=== PATIENT | male | born 1945 | race Caucasian/White ===

== ENCOUNTER 2021-06-11 10:09 | Inpatient (IN) ==
[2021-06-11] MEDS ORDERED: Isovue-370 500 ML BOTTLE IVP ONE (11:02)
[2021-06-11 11:27] LABS: VBG HCO3 26 mEq/L (21-27); VBG PCO2 55 mmHg (41-51); VBG PH 7.28 pH Units (7.32-7.42); VBG PO2 33 mmHg (25-50)
[2021-06-11 11:39] LABS: Basophils % 0.4 %; Eosinophils % 0.6 %; Hematocrit 33.6 % (37.5-50.1); Hemoglobin 10.6 g/dL (12.9-16.9); Immature Granulocytes % 0.4 % (0-4); Lymphocytes # 0.6 K/mcL (0.6-4.6); Lymphocytes % 13.3 %; Mean Corpuscular HGB Conc 31.5 g/dL (31.6-35.5); Mean Corpuscular Hemoglobin 27.4 pg (28.0-33.3); Mean Corpuscular Volume 86.8 fL (83.0-100.0); Mean Platelet Volume 9.8 fL (9.4-12.4); Monocytes # 0.3 K/mcL (0.0-1.3); Neutrophils # 3.7 K/mcL (1.6-8.9); Platelet Count 160 K/mcL (140-400); Red Blood Count 3.87 M/mcL (4.19-5.50); Red Cell Distribution Width 15.7 % (11.5-14.5); Segmented Neutrophils % 79.3 %; White Blood Count 4.7 K/mcL (4.3-11.1)
[2021-06-11 11:52] LABS: INR 1.1; Prothrombin Time 13.2 Seconds (9.4-12.1)
[2021-06-11 11:55] LABS: Activated Partial Thrombo Time 36.6 Seconds (26.0-36.0); Alanine Aminotransferase 17 Units/L (7-52); Albumin 3.3 g/dL (3.5-5.7); Albumin/Globulin Ratio 1.1 (1.1-2.2); Alkaline Phosphatase 75 Units/L (34-104); Aspartate Amino Transferase 42 Units/L (13-39); BUN/Creatinine Ratio 19 (6-26); Bilirubin,Direct 0.1 mg/dL (0.0-0.2); Bilirubin,Indirect 0.3 mg/dL (0.0-1.0); Bilirubin,Total 0.4 mg/dL (0.3-1.0); Blood Urea Nitrogen 23 mg/dL (8-23); Calcium 7.7 mg/dL (8.6-10.3); Carbon Dioxide 24 mEq/L (23-29); Chloride 95 mEq/L (98-107); Glucose 105 mg/dL (70-105); Osmolality,Calculated 270 (280-300); Sodium 128 mEq/L (136-145); Total Protein 6.3 g/dL (6.4-8.9); Troponin I < 0.03 ng/mL (< 0.04); eGFR For African Americans > 60 (> 60); eGFR For Non-African Americans 60 (> 60)
[2021-06-11 12:20] LABS: Adenovirus Not Detected (Not Detect); Bordetella Pertussis Not Detected (Not Detect); Chlamydophila pneumoniae Not Detected (Not Detect); Coronavirus 229E Not Detected (Not Detect); Coronavirus HKU1 Not Detected (Not Detect); Coronavirus NL63 Not Detected (Not Detect); Coronavirus OC43 Not Detected (Not Detect); Human Metapneumovirus Not Detected (Not Detect); Human Rhinovirus/Enterovirus Not Detected (Not Detect); Influenza A Subtype 2009 H1 Not Detected (Not Detect); Influenza B Not Detected (Not Detect); Mycoplasma pneumoniae Not Detected (Not Detect); Parainfluenza Virus 1 Not Detected (Not Detect); Parainfluenza Virus 2 Not Detected (Not Detect); Parainfluenza Virus 3 Not Detected (Not Detect); Parainfluenza Virus 4 Not Detected (Not Detect); Respiratory Syncytial Virus Not Detected (Not Detect)
[2021-06-11 12:25] LABS: SARS-CoV-2 DETECTED (Not Detect)
[2021-06-11] MEDS ORDERED: Azithromycin 500 MG in 0.9 % Sodium Chloride 250 ML IVPB ONE (12:38)
[2021-06-11] MEDS ORDERED: cefTRIAXone 1,000 MG in Water for inj. (sterile) 10 ML IVP ONE (12:38)
[2021-06-11] MEDS ORDERED: Naloxone 0.4 MG/ML INJ IVP PRN (14:00)
[2021-06-11] MEDS ORDERED: Ondansetron 4 MG/2 ML VIAL IVP PRN (14:00)
[2021-06-11] MEDS ORDERED: Remdesivir 200 MG in 0.9 % Sodium Chloride 100 ML IVPB ONE (15:39)
[2021-06-11] MEDS ORDERED: traZODone 50 MG TABLET PO PRN (16:22)
[2021-06-11] MEDS: *HR* Heparin 5,000 UNIT/ML VIAL SQ SCH (16:55)
[2021-06-11] MEDS: Patient Taking Own Medication 1 EACH IT SCH (16:55)
[2021-06-11 17:25] LABS: C-Reactive Protein 105 mg/L (Less than 10); Ferritin 432 ng/mL (20-250); Lactate Dehydrogenase 301 Units/L (140-271)
[2021-06-11] MEDS: Baclofen 10 MG TABLET PO SCH (20:47)
[2021-06-12 06:03] LABS: Hemoglobin 11.5 g/dL (12.9-16.9); Immature Granulocytes % 0.5 % (0-4); Lymphocytes # 0.6 K/mcL (0.6-4.6); Lymphocytes % 13.9 %; Mean Corpuscular HGB Conc 31.9 g/dL (31.6-35.5); Mean Corpuscular Hemoglobin 27.3 pg (28.0-33.3); Mean Corpuscular Volume 85.3 fL (83.0-100.0); Mean Platelet Volume 9.8 fL (9.4-12.4); Monocytes # 0.2 K/mcL (0.0-1.3); Monocytes % 5.3 %; Neutrophils # 3.2 K/mcL (1.6-8.9); Platelet Count 158 K/mcL (140-400); Red Blood Count 4.22 M/mcL (4.19-5.50); Red Cell Distribution Width 15.4 % (11.5-14.5); Segmented Neutrophils % 80.3 %
[2021-06-12] MEDS: *HR* Heparin 5,000 UNIT/ML VIAL SQ SCH (06:08)
[2021-06-12 07:17] LABS: Alanine Aminotransferase 15 Units/L (7-52); Albumin/Globulin Ratio 1.1 (1.1-2.2); Alkaline Phosphatase 72 Units/L (34-104); Aspartate Amino Transferase 39 Units/L (13-39); BUN/Creatinine Ratio 26 (6-26); Bilirubin,Direct 0.1 mg/dL (0.0-0.2); Bilirubin,Indirect 0.2 mg/dL (0.0-1.0); Bilirubin,Total 0.3 mg/dL (0.3-1.0); Blood Urea Nitrogen 24 mg/dL (8-23); Carbon Dioxide 23 mEq/L (23-29); Chloride 100 mEq/L (98-107); Globulin 2.8 g/dL (2.4-3.5); Glucose 166 mg/dL (70-105); Magnesium 1.8 mg/dL (1.6-2.6); Osmolality,Calculated 280 (280-300); Phosphorous 4.4 mg/dL (2.7-4.5); Potassium 4.6 mEq/L (3.5-5.1); Sodium 131 mEq/L (136-145); Total Protein 5.8 g/dL (6.4-8.9); eGFR For African Americans > 60 (> 60); eGFR For Non-African Americans > 60 (> 60)
[2021-06-12] MEDS: Tiotropium 10 INH DOSE IH SCH (07:49)
[2021-06-12] MEDS ORDERED: Dexamethasone Sodium Phos/PF 10 MG/ML VIAL IVP SCH (09:00)
[2021-06-12] MEDS: Baclofen 10 MG TABLET PO SCH ×3 (09:01→20:38)
[2021-06-12] MEDS: Azithromycin 500 MG in 0.9 % Sodium Chloride 250 ML IVPB SCH (12:21)
[2021-06-12] MEDS: cefTRIAXone 1,000 MG in Water for inj. (sterile) 10 ML IVP SCH (12:21)
[2021-06-12] MEDS ORDERED: D5% in Water 1,000 ML IVC PRN (12:47)
[2021-06-12] MEDS ORDERED: Dextrose Gel 15 GM/37.5 ML TUBE PO PRN ×2 (12:47)
[2021-06-12] MEDS ORDERED: *HR* Dextrose 50 % in Water (Vial) 50 ML VIAL IVP PRN (12:47)
[2021-06-12] MEDS: Gabapentin 300 MG CAPSULE PO SCH ×2 (15:42→20:37)
[2021-06-12] MEDS: Furosemide 40 MG TABLET PO SCH (15:51)
[2021-06-12] MEDS: Remdesivir 100 MG in 0.9 % Sodium Chloride 100 ML IVPB SCH (16:36)
[2021-06-12] MEDS: Patient Taking Own Medication 1 EACH IT SCH (16:57)
[2021-06-12] MEDS: Insulin LISPRO 300 UNITS/3 ML VIAL SUBQ SCH (19:32)
[2021-06-13 03:47] LABS: Hematocrit 35.3 % (37.5-50.1); Hemoglobin 11.3 g/dL (12.9-16.9); Mean Corpuscular Hemoglobin 27.2 pg (28.0-33.3); Mean Corpuscular Volume 84.9 fL (83.0-100.0); Mean Platelet Volume 9.7 fL (9.4-12.4); Platelet Count 184 K/mcL (140-400); Red Blood Count 4.16 M/mcL (4.19-5.50); Red Cell Distribution Width 15.6 % (11.5-14.5); White Blood Count 6.6 K/mcL (4.3-11.1)
[2021-06-13 04:05] LABS: Albumin 2.8 g/dL (3.5-5.7); Bilirubin,Direct 0.2 mg/dL (0.0-0.2); Bilirubin,Indirect 0.2 mg/dL (0.0-1.0); Bilirubin,Total 0.4 mg/dL (0.3-1.0); Globulin 2.8 g/dL (2.4-3.5); Total Protein 5.6 g/dL (6.4-8.9)
[2021-06-13 04:14] LABS: BUN/Creatinine Ratio 29 (6-26); Blood Urea Nitrogen 31 mg/dL (8-23); Calcium 8.2 mg/dL (8.6-10.3); Carbon Dioxide 25 mEq/L (23-29); Chloride 101 mEq/L (98-107); Glucose 196 mg/dL (70-105); Magnesium 1.8 mg/dL (1.6-2.6); Osmolality,Calculated 294 (280-300); Phosphorous 3.5 mg/dL (2.7-4.5); Potassium 4.3 mEq/L (3.5-5.1); Sodium 136 mEq/L (136-145); eGFR For African Americans > 60 (> 60); eGFR For Non-African Americans > 60 (> 60)
[2021-06-13 04:25] LABS: Ferritin 672 ng/mL (20-250)
[2021-06-13] MEDS: *HR* Enoxaparin 40 MG/0.4 ML SYRINGE SQ SCH (05:08)
[2021-06-13] MEDS: Tiotropium 10 INH DOSE IH SCH (07:40)
[2021-06-13] MEDS: Insulin LISPRO 300 UNITS/3 ML VIAL SUBQ SCH ×3 (09:43→17:46)
[2021-06-13] MEDS: Dexamethasone Sodium Phos/PF 10 MG/ML VIAL IVP SCH (09:57)
[2021-06-13] MEDS: Gabapentin 300 MG CAPSULE PO SCH ×2 (09:58→21:41)
[2021-06-13] MEDS: Baclofen 10 MG TABLET PO SCH ×3 (09:58→21:41)
[2021-06-13] MEDS: Furosemide 40 MG TABLET PO SCH (09:58)
[2021-06-13] MEDS: *HR* SitaGLIPtin 25 MG TABLET PO SCH (09:58)
[2021-06-13] MEDS: cefTRIAXone 1,000 MG in Water for inj. (sterile) 10 ML IVP SCH (13:37)
[2021-06-13] MEDS: Azithromycin 500 MG in 0.9 % Sodium Chloride 250 ML IVPB SCH (13:52)
[2021-06-13] MEDS ORDERED: Ipratropium 1 PUFF INHALER IH PRN (15:48)
[2021-06-13] MEDS: Remdesivir 100 MG in 0.9 % Sodium Chloride 100 ML IVPB SCH (16:04)
[2021-06-13] MEDS: Patient Taking Own Medication 1 EACH IT SCH (16:08)
[2021-06-13] MEDS ORDERED: Furosemide 20 MG/2 ML VIAL IVP ONE (21:07)
[2021-06-14] MEDS: *HR* Enoxaparin 40 MG/0.4 ML SYRINGE SQ SCH (05:35)
[2021-06-14 06:02] LABS: Hematocrit 37.2 % (37.5-50.1); Hemoglobin 11.9 g/dL (12.9-16.9); Mean Corpuscular Hemoglobin 27.4 pg (28.0-33.3); Mean Corpuscular Volume 85.5 fL (83.0-100.0); Mean Platelet Volume 10.1 fL (9.4-12.4); Platelet Count 218 K/mcL (140-400); Red Blood Count 4.35 M/mcL (4.19-5.50); Red Cell Distribution Width 15.7 % (11.5-14.5); White Blood Count 6.8 K/mcL (4.3-11.1)
[2021-06-14] MEDS: Tiotropium 10 INH DOSE IH SCH (07:38)
[2021-06-14 07:53] LABS: BUN/Creatinine Ratio 39 (6-26); Blood Urea Nitrogen 51 mg/dL (8-23); Calcium 8.5 mg/dL (8.6-10.3); Carbon Dioxide 23 mEq/L (23-29); Chloride 106 mEq/L (98-107); Glucose 213 mg/dL (70-105); Osmolality,Calculated 308 (280-300); Potassium 4.4 mEq/L (3.5-5.1); Sodium 139 mEq/L (136-145); eGFR For African Americans > 60 (> 60); eGFR For Non-African Americans 53 (> 60)
[2021-06-14 07:56] LABS: Albumin 3.1 g/dL (3.5-5.7); Bilirubin,Direct 0.1 mg/dL (0.0-0.2); Bilirubin,Indirect 0.3 mg/dL (0.0-1.0); Bilirubin,Total 0.4 mg/dL (0.3-1.0); Globulin 3.2 g/dL (2.4-3.5); Total Protein 6.3 g/dL (6.4-8.9)
[2021-06-14] MEDS: Insulin LISPRO 300 UNITS/3 ML VIAL SUBQ SCH ×3 (09:16→17:39)
[2021-06-14] MEDS: Dexamethasone Sodium Phos/PF 10 MG/ML VIAL IVP SCH (09:17)
[2021-06-14] MEDS: Furosemide 40 MG TABLET PO SCH (09:18)
[2021-06-14] MEDS: *HR* SitaGLIPtin 25 MG TABLET PO SCH (09:18)
[2021-06-14] MEDS: Baclofen 10 MG TABLET PO SCH ×3 (09:18→21:00)
[2021-06-14] MEDS: Azithromycin 500 MG in 0.9 % Sodium Chloride 250 ML IVPB SCH (12:46)
[2021-06-14] MEDS: cefTRIAXone 1,000 MG in Water for inj. (sterile) 10 ML IVP SCH (12:48)
[2021-06-14] MEDS: Remdesivir 100 MG in 0.9 % Sodium Chloride 100 ML IVPB SCH (17:40)
[2021-06-14] MEDS: Patient Taking Own Medication 1 EACH IT SCH (17:41)
[2021-06-14] MEDS: Gabapentin 300 MG CAPSULE PO SCH (21:00)
[2021-06-15] MEDS: *HR* Enoxaparin 40 MG/0.4 ML SYRINGE SQ SCH (05:49)
[2021-06-15 07:04] LABS: Hematocrit 36.4 % (37.5-50.1); Hemoglobin 11.6 g/dL (12.9-16.9); Mean Corpuscular HGB Conc 31.9 g/dL (31.6-35.5); Mean Corpuscular Hemoglobin 27.4 pg (28.0-33.3); Mean Corpuscular Volume 86.1 fL (83.0-100.0); Mean Platelet Volume 9.7 fL (9.4-12.4); Platelet Count 193 K/mcL (140-400); Red Blood Count 4.23 M/mcL (4.19-5.50); Red Cell Distribution Width 15.7 % (11.5-14.5); White Blood Count 7.1 K/mcL (4.3-11.1)
[2021-06-15 07:22] LABS: Albumin 3.1 g/dL (3.5-5.7); Bilirubin,Direct 0.1 mg/dL (0.0-0.2); Bilirubin,Indirect 0.3 mg/dL (0.0-1.0); Bilirubin,Total 0.4 mg/dL (0.3-1.0); Globulin 3.2 g/dL (2.4-3.5); Total Protein 6.3 g/dL (6.4-8.9)
[2021-06-15 07:24] LABS: BUN/Creatinine Ratio 43 (6-26); Blood Urea Nitrogen 60 mg/dL (8-23); Calcium 8.4 mg/dL (8.6-10.3); Carbon Dioxide 27 mEq/L (23-29); Chloride 102 mEq/L (98-107); Glucose 205 mg/dL (70-105); Magnesium 2.3 mg/dL (1.6-2.6); Osmolality,Calculated 307 (280-300); Phosphorous 3.7 mg/dL (2.7-4.5); Potassium 4.1 mEq/L (3.5-5.1); Sodium 137 mEq/L (136-145); eGFR For African Americans > 60 (> 60); eGFR For Non-African Americans 50 (> 60)
[2021-06-15 07:41] LABS: Ferritin 522 ng/mL (20-250)
[2021-06-15] MEDS: Tiotropium 10 INH DOSE IH SCH (07:44)
[2021-06-15] MEDS: Baclofen 10 MG TABLET PO SCH ×2 (09:39→18:29)
[2021-06-15] MEDS: *HR* SitaGLIPtin 25 MG TABLET PO SCH (09:39)
[2021-06-15] MEDS: Furosemide 40 MG TABLET PO SCH (09:39)
[2021-06-15] MEDS: Insulin LISPRO 300 UNITS/3 ML VIAL SUBQ SCH ×3 (09:40→18:31)
[2021-06-15] MEDS: Dexamethasone Sodium Phos/PF 10 MG/ML VIAL IVP SCH (09:40)
[2021-06-15 11:42] LABS: C-Reactive Protein 30 mg/L (Less than 10)
[2021-06-15] MEDS: cefTRIAXone 1,000 MG in Water for inj. (sterile) 10 ML IVP SCH (12:37)
[2021-06-15] MEDS ORDERED: Azithromycin 250 MG TABLET PO SCH (13:00)
[2021-06-15] MEDS: Patient Taking Own Medication 1 EACH IT SCH (18:30)
[2021-06-15] MEDS ORDERED: *HR* HYDROmorphone (PF) 1 MG/ML SYRINGE IVP PRN (22:02)
[2021-06-16] MEDS: Insulin LISPRO 300 UNITS/3 ML VIAL SUBQ SCH ×4 (01:14→17:34)
[2021-06-16 01:57] LABS: Sodium, Urine 49.6 mEq/L
[2021-06-16] MEDS: *HR* Enoxaparin 40 MG/0.4 ML SYRINGE SQ SCH (06:32)
[2021-06-16 07:26] LABS: Basophils % 0.1 %; Hematocrit 37.5 % (37.5-50.1); Hemoglobin 12.1 g/dL (12.9-16.9); Immature Granulocytes % 0.9 % (0-4); Lymphocytes # 0.7 K/mcL (0.6-4.6); Lymphocytes % 7.5 %; Mean Corpuscular HGB Conc 32.3 g/dL (31.6-35.5); Mean Corpuscular Hemoglobin 27.2 pg (28.0-33.3); Mean Corpuscular Volume 84.3 fL (83.0-100.0); Mean Platelet Volume 10.3 fL (9.4-12.4); Monocytes # 0.8 K/mcL (0.0-1.3); Monocytes % 8.3 %; Platelet Count 195 K/mcL (140-400); Red Blood Count 4.45 M/mcL (4.19-5.50); Red Cell Distribution Width 15.4 % (11.5-14.5); Segmented Neutrophils % 83.2 %; White Blood Count 9.6 K/mcL (4.3-11.1)
[2021-06-16 07:45] LABS: Alanine Aminotransferase 13 Units/L (7-52); Albumin 3.2 g/dL (3.5-5.7); Alkaline Phosphatase 63 Units/L (34-104); Aspartate Amino Transferase 17 Units/L (13-39); BUN/Creatinine Ratio 54 (6-26); Bilirubin,Total 0.5 mg/dL (0.3-1.0); Blood Urea Nitrogen 65 mg/dL (8-23); Calcium 8.4 mg/dL (8.6-10.3); Carbon Dioxide 23 mEq/L (23-29); Chloride 106 mEq/L (98-107); Globulin 3.1 g/dL (2.4-3.5); Glucose 219 mg/dL (70-105); Osmolality,Calculated 311 (280-300); Potassium 4.2 mEq/L (3.5-5.1); Sodium 138 mEq/L (136-145); Total Protein 6.3 g/dL (6.4-8.9); eGFR For African Americans > 60 (> 60); eGFR For Non-African Americans 59 (> 60)
[2021-06-16 07:46] LABS: Albumin 3.1 g/dL (3.5-5.7); Bilirubin,Direct 0.1 mg/dL (0.0-0.2); Bilirubin,Indirect 0.4 mg/dL (0.0-1.0); Bilirubin,Total 0.5 mg/dL (0.3-1.0); Globulin 3.2 g/dL (2.4-3.5); Total Protein 6.3 g/dL (6.4-8.9)
[2021-06-16] MEDS: Dexamethasone Sodium Phos/PF 10 MG/ML VIAL IVP SCH (07:53)
[2021-06-16] MEDS: Baclofen 10 MG TABLET PO SCH ×3 (07:54→19:57)
[2021-06-16] MEDS: Tiotropium 10 INH DOSE IH SCH (07:58)
[2021-06-16] MEDS: Gabapentin 300 MG CAPSULE PO SCH (19:57)
[2021-06-16] MEDS: Saliva Stimulant 44.3ml BOTTLE PO PRN (20:08)
[2021-06-16] MEDS: Patient Taking Own Medication 1 EACH IT SCH (20:11)
[2021-06-17] MEDS: Insulin LISPRO 300 UNITS/3 ML VIAL SUBQ SCH ×4 (00:49→18:34)
[2021-06-17] MEDS: *HR* Enoxaparin 40 MG/0.4 ML SYRINGE SQ SCH (06:00)
[2021-06-17] MEDS: Saliva Stimulant 44.3ml BOTTLE PO PRN ×3 (06:04→16:11)
[2021-06-17] MEDS: Tiotropium 10 INH DOSE IH SCH (07:47)
[2021-06-17] MEDS: Baclofen 10 MG TABLET PO SCH ×3 (09:02→19:47)
[2021-06-17] MEDS: Dexamethasone Sodium Phos/PF 10 MG/ML VIAL IVP SCH (10:04)
[2021-06-17] MEDS: Haloperidol Lactate 5 MG/ML VIAL IVP PRN (14:31)
[2021-06-17] MEDS: QUEtiapine Fumarate 25 MG TABLET PO SCH ×2 (15:05→19:48)
[2021-06-17] MEDS: Patient Taking Own Medication 1 EACH IT SCH (17:06)
[2021-06-17] MEDS: Gabapentin 300 MG CAPSULE PO SCH (19:48)
[2021-06-18] MEDS: Insulin LISPRO 300 UNITS/3 ML VIAL SUBQ SCH ×4 (00:51→18:30)
[2021-06-18] MEDS: Haloperidol Lactate 5 MG/ML VIAL IVP PRN (05:16)
[2021-06-18] MEDS: *HR* Enoxaparin 40 MG/0.4 ML SYRINGE SQ SCH (06:59)
[2021-06-18] MEDS: Tiotropium 10 INH DOSE IH SCH (07:57)
[2021-06-18] MEDS: Baclofen 10 MG TABLET PO SCH ×3 (10:44→22:10)
[2021-06-18] MEDS: QUEtiapine Fumarate 25 MG TABLET PO SCH ×2 (10:44→22:10)
[2021-06-18] MEDS: Dexamethasone Sodium Phos/PF 10 MG/ML VIAL IVP SCH (11:09)
[2021-06-18 11:11] LABS: BUN/Creatinine Ratio 48 (6-26); Blood Urea Nitrogen 50 mg/dL (8-23); Calcium 8.7 mg/dL (8.6-10.3); Carbon Dioxide 26 mEq/L (23-29); Chloride 114 mEq/L (98-107); Glucose 196 mg/dL (70-105); Osmolality,Calculated 327 (280-300); Potassium 3.9 mEq/L (3.5-5.1); Sodium 149 mEq/L (136-145); eGFR For African Americans > 60 (> 60); eGFR For Non-African Americans > 60 (> 60)
[2021-06-18] MEDS: Saliva Stimulant 44.3ml BOTTLE PO PRN (11:15)
[2021-06-18 13:25] LABS: Hematocrit 41.6 % (37.5-50.1); Hemoglobin 12.8 g/dL (12.9-16.9); Mean Corpuscular HGB Conc 30.8 g/dL (31.6-35.5); Mean Corpuscular Hemoglobin 26.8 pg (28.0-33.3); Mean Platelet Volume 11.2 fL (9.4-12.4); Platelet Count 213 K/mcL (140-400); Red Blood Count 4.78 M/mcL (4.19-5.50); Red Cell Distribution Width 15.9 % (11.5-14.5); White Blood Count 18.9 K/mcL (4.3-11.1)
[2021-06-18] MEDS ORDERED: Haloperidol Lactate 5 MG/ML VIAL IM ONE (17:04)
[2021-06-18] MEDS: Patient Taking Own Medication 1 EACH IT SCH (18:30)
[2021-06-18] MEDS: Gabapentin 300 MG CAPSULE PO SCH (22:10)
[2021-06-19] MEDS: Insulin LISPRO 300 UNITS/3 ML VIAL SUBQ SCH ×4 (00:05→17:58)
[2021-06-19] MEDS: *HR* Enoxaparin 40 MG/0.4 ML SYRINGE SQ SCH (05:43)
[2021-06-19] MEDS: Dexamethasone Sodium Phos/PF 10 MG/ML VIAL IVP SCH (09:22)
[2021-06-19] MEDS: Baclofen 10 MG TABLET PO SCH ×3 (09:22→22:21)
[2021-06-19] MEDS: QUEtiapine Fumarate 25 MG TABLET PO SCH ×2 (09:22→22:21)
[2021-06-19 09:23] LABS: Basophils # 0.1 K/mcL (0.0-0.2); Basophils % 0.2 %; Hematocrit 45.3 % (37.5-50.1); Hemoglobin 13.6 g/dL (12.9-16.9); Immature Granulocytes % 0.9 % (0-4); Lymphocytes # 0.6 K/mcL (0.6-4.6); Lymphocytes % 2.8 %; Mean Corpuscular Hemoglobin 26.7 pg (28.0-33.3); Mean Platelet Volume 11.1 fL (9.4-12.4); Monocytes # 0.8 K/mcL (0.0-1.3); Monocytes % 3.4 %; Neutrophils # 20.9 K/mcL (1.6-8.9); Nucleated Red Blood Cells 0.1 /100 WBC (0); Platelet Count 190 K/mcL (140-400); Red Blood Count 5.09 M/mcL (4.19-5.50); Red Cell Distribution Width 16.2 % (11.5-14.5); Segmented Neutrophils % 92.7 %; White Blood Count 22.6 K/mcL (4.3-11.1)
[2021-06-19 09:42] LABS: BUN/Creatinine Ratio 41 (6-26); Blood Urea Nitrogen 47 mg/dL (8-23); Calcium 9.2 mg/dL (8.6-10.3); Carbon Dioxide 25 mEq/L (23-29); Chloride 118 mEq/L (98-107); Glucose 207 mg/dL (70-105); Magnesium 2.9 mg/dL (1.6-2.6); Osmolality,Calculated 336 (280-300); Phosphorous 3.1 mg/dL (2.7-4.5); Sodium 154 mEq/L (136-145); eGFR For African Americans > 60 (> 60); eGFR For Non-African Americans > 60 (> 60)
[2021-06-19] MEDS: Tiotropium 10 INH DOSE IH SCH (10:51)
[2021-06-19] MEDS ORDERED: D5% in Water 1,000 ML IVC SCH (11:15)
[2021-06-19] MEDS ORDERED: DilTIAZem SR (12hr) 60 MG CAP.ER.12H PO SCH (12:45)
[2021-06-19] MEDS ORDERED: DilTIAZem 50 MG/50 ML IV.SOLN IVC SCH (13:00)
[2021-06-19] MEDS: Patient Taking Own Medication 1 EACH IT SCH (13:01)
[2021-06-19] MEDS: Haloperidol Lactate 5 MG/ML VIAL IVP PRN (22:19)
[2021-06-19] MEDS: Gabapentin 300 MG CAPSULE PO SCH (22:21)
[2021-06-20 00:48] LABS: Basophils % 0.1 %; Hematocrit 42.8 % (37.5-50.1); Hemoglobin 13.2 g/dL (12.9-16.9); Immature Granulocytes % 0.6 % (0-4); Lymphocytes # 0.6 K/mcL (0.6-4.6); Lymphocytes % 3.3 %; Mean Corpuscular HGB Conc 30.8 g/dL (31.6-35.5); Mean Corpuscular Hemoglobin 27.2 pg (28.0-33.3); Mean Corpuscular Volume 88.2 fL (83.0-100.0); Mean Platelet Volume 11.8 fL (9.4-12.4); Monocytes # 0.6 K/mcL (0.0-1.3); Monocytes % 3.2 %; Neutrophils # 17.6 K/mcL (1.6-8.9); Platelet Count 160 K/mcL (140-400); Red Blood Count 4.85 M/mcL (4.19-5.50); Red Cell Distribution Width 16.5 % (11.5-14.5); Segmented Neutrophils % 92.8 %
[2021-06-20 01:05] LABS: Fibrinogen 490 mg/dL (169-393)
[2021-06-20 01:21] LABS: BUN/Creatinine Ratio 45 (6-26); Blood Urea Nitrogen 52 mg/dL (8-23); Calcium 8.9 mg/dL (8.6-10.3); Carbon Dioxide 24 mEq/L (23-29); Chloride 116 mEq/L (98-107); Glucose 360 mg/dL (70-105); Magnesium 2.9 mg/dL (1.6-2.6); Osmolality,Calculated 341 (280-300); Phosphorous 2.5 mg/dL (2.7-4.5); Potassium 4.1 mEq/L (3.5-5.1); Sodium 151 mEq/L (136-145); eGFR For African Americans > 60 (> 60); eGFR For Non-African Americans > 60 (> 60)
[2021-06-20 01:24] LABS: D-Dimer 14246 ng/mLFEU (0-500)
[2021-06-20 01:38] LABS: Ferritin > 1500 ng/mL (20-250)
[2021-06-20] MEDS: DilTIAZem CD (24hr) 120 MG CAP.ER.24H PO SCH ×2 (01:38→21:52)
[2021-06-20] MEDS: Baclofen 10 MG TABLET PO SCH ×4 (01:40→21:53)
[2021-06-20] MEDS: QUEtiapine Fumarate 25 MG TABLET PO SCH ×2 (01:41→09:42)
[2021-06-20] MEDS: Gabapentin 300 MG CAPSULE PO SCH ×2 (01:41→21:53)
[2021-06-20] MEDS: Insulin LISPRO 300 UNITS/3 ML VIAL SUBQ SCH ×4 (06:11→18:24)
[2021-06-20] MEDS: *HR* Enoxaparin 40 MG/0.4 ML SYRINGE SQ SCH (06:12)
[2021-06-20] MEDS ORDERED: D5% in Water 1,000 ML IVC SCH (07:45)
[2021-06-20] MEDS: Dexamethasone Sodium Phos/PF 10 MG/ML VIAL IVP SCH (08:11)
[2021-06-20] MEDS: Tiotropium 10 INH DOSE IH SCH (10:30)
[2021-06-20] MEDS ORDERED: Isovue-370 500 ML BOTTLE IVP ONE (11:51)
[2021-06-20] MEDS: Patient Taking Own Medication 1 EACH IT SCH (15:25)
[2021-06-20 17:08] LABS: ABG Base Excess 3 mEq/L (-2 to 3); ABG HCO3 25 mEq/L (21-27); ABG Oxygen Saturation 93 % (95-98); ABG PCO2 31 mmHg (35-45); ABG PH 7.51 pH Units (7.32-7.45); ABG PO2 59 mmHg (85-104); ABG TCO2 26 mEq/L (20-26)
[2021-06-20] MEDS ORDERED: Insulin DETEMIR 100 UNIT/ML X5UNITS SUBQ SCH (21:00)
[2021-06-20] MEDS: Insulin DETEMIR 100 UNIT/ML X5UNITS SUBQ SCH (21:58)
[2021-06-21] MEDS: Insulin LISPRO 300 UNITS/3 ML VIAL SUBQ SCH ×4 (00:29→17:35)
[2021-06-21] MEDS: *HR* Enoxaparin 40 MG/0.4 ML SYRINGE SQ SCH (06:24)
[2021-06-21] MEDS ORDERED: *HR* Heparin 5,000 UNIT/ML VIAL IVP PRN (07:43)
[2021-06-21] MEDS ORDERED: *HR* Heparin 5,000 UNIT/ML VIAL IVP ONE ×2 (07:43→12:15)
[2021-06-21] MEDS: Tiotropium 10 INH DOSE IH SCH (08:59)
[2021-06-21] MEDS: Insulin DETEMIR 100 UNIT/ML X5UNITS SUBQ SCH ×2 (09:51→20:26)
[2021-06-21] MEDS: Baclofen 10 MG TABLET PO SCH ×3 (09:52→20:18)
[2021-06-21] MEDS: DilTIAZem CD (24hr) 120 MG CAP.ER.24H PO SCH (09:53)
[2021-06-21] MEDS: Levothyroxine Sodium 100 MCG VIAL IVP SCH (11:31)
[2021-06-21] MEDS: Pantoprazole 40 MG VIAL IVP SCH (11:34)
[2021-06-21 11:35] LABS: Hematocrit 47.2 % (37.5-50.1); Hemoglobin 14.6 g/dL (12.9-16.9); Mean Corpuscular HGB Conc 30.9 g/dL (31.6-35.5); Mean Corpuscular Volume 87.2 fL (83.0-100.0); Monocytes # 0.9 K/mcL (0.0-1.3); Platelet Count 160 K/mcL (140-400); Red Blood Count 5.41 M/mcL (4.19-5.50); Red Cell Distribution Width 16.7 % (11.5-14.5); White Blood Count 29.3 K/mcL (4.3-11.1)
[2021-06-21] MEDS: Heparin 25,000UNIT/250ML 1/2NS 25,000 UNIT/250 ML IV.SOLN IVC SCH (11:44)
[2021-06-21 11:47] LABS: Fibrinogen 363 mg/dL (169-393); Heparin anti-factor XA UFH 0.26 IU/mL (0.30-0.70)
[2021-06-21 11:50] LABS: INR 1.5; Prothrombin Time 16.8 Seconds (9.4-12.1)
[2021-06-21 12:00] LABS: D-Dimer 28374 ng/mLFEU (0-500)
[2021-06-21] MEDS ORDERED: Dexamethasone Sodium Phos/PF 10 MG/ML VIAL IVP ONE (12:00)
[2021-06-21 12:10] LABS: BUN/Creatinine Ratio 48 (6-26); Blood Urea Nitrogen 65 mg/dL (8-23); Calcium 9.2 mg/dL (8.6-10.3); Carbon Dioxide 25 mEq/L (23-29); Chloride 119 mEq/L (98-107); Glucose 208 mg/dL (70-105); Lactate Dehydrogenase 410 Units/L (140-271); Osmolality,Calculated 349 (280-300); Potassium 3.9 mEq/L (3.5-5.1); Sodium 157 mEq/L (136-145); eGFR For African Americans > 60 (> 60); eGFR For Non-African Americans 51 (> 60)
[2021-06-21 12:17] LABS: Ferritin > 1500 ng/mL (20-250)
[2021-06-21 12:21] LABS: Lymphocytes # 0.6 K/mcL (0.6-4.6); Neutrophils # 27.8 K/mcL (1.6-8.9)
[2021-06-21 12:22] LABS: Large Platelets Present (Not Present); Platelet Estimate Normal (Normal); Toxic Granulation Present (Not Present)
[2021-06-21] MEDS: Haloperidol Lactate 5 MG/ML VIAL IVP PRN (12:52)
[2021-06-21 12:56] LABS: Estimated Average Glucose 180 mg/dl; Hemoglobin A1C 7.9 %
[2021-06-21] MEDS: Patient Taking Own Medication 1 EACH IT SCH (14:45)
[2021-06-21] MEDS ORDERED: D5% in Water 1,000 ML IVC SCH (17:00)
[2021-06-21] MEDS ORDERED: Doxycycline 100 MG in 0.9 % Sodium Chloride Mini Bag 100 ML IVPB SCH (18:00)
[2021-06-21] MEDS: Gabapentin 300 MG CAPSULE PO SCH (20:18)
[2021-06-21] MEDS: QUEtiapine Fumarate 25 MG TABLET PO SCH (20:18)
[2021-06-21] MEDS: Ampicillin/Sulbactam 1,500 MG in 0.9 % Sodium Chloride Mini Bag 100 ML IVPB SCH (23:02)
[2021-06-22] MEDS: Ampicillin/Sulbactam 1,500 MG in 0.9 % Sodium Chloride Mini Bag 100 ML IVPB SCH ×5 (00:35→23:56)
[2021-06-22] MEDS: Insulin LISPRO 300 UNITS/3 ML VIAL SUBQ SCH ×4 (00:48→17:57)
[2021-06-22] MEDS: Baclofen 10 MG TABLET PO SCH ×3 (07:22→21:09)
[2021-06-22] MEDS: DilTIAZem CD (24hr) 120 MG CAP.ER.24H PO SCH (07:22)
[2021-06-22] MEDS: QUEtiapine Fumarate 25 MG TABLET PO SCH ×2 (07:23→21:09)
[2021-06-22] MEDS: Insulin DETEMIR 100 UNIT/ML X5UNITS SUBQ SCH ×2 (07:34→21:47)
[2021-06-22] MEDS: Pantoprazole 40 MG VIAL IVP SCH (07:35)
[2021-06-22] MEDS: Levothyroxine Sodium 100 MCG VIAL IVP SCH (07:35)
[2021-06-22] MEDS: Dexamethasone Sodium Phos/PF 10 MG/ML VIAL IVP SCH (08:52)
[2021-06-22] MEDS: Tiotropium 10 INH DOSE IH SCH (10:56)
[2021-06-22] MEDS: *HR* Heparin 5,000 UNIT/ML VIAL IVP PRN ×2 (11:35→19:14)
[2021-06-22] MEDS ORDERED: Dexamethasone Sodium Phos/PF 10 MG/ML VIAL IVP ONE (11:58)
[2021-06-22 12:12] LABS: Basophils % 0.1 %; Hemoglobin 13.9 g/dL (12.9-16.9); Immature Granulocytes % 0.8 % (0-4)
[2021-06-22 12:14] LABS: Hematocrit 44.6 % (37.5-50.1); Lymphocytes # 0.5 K/mcL (0.6-4.6); Lymphocytes % 1.9 %; Mean Corpuscular HGB Conc 31.2 g/dL (31.6-35.5); Mean Corpuscular Volume 86.8 fL (83.0-100.0); Mean Platelet Volume 12.1 fL (9.4-12.4); Monocytes # 0.8 K/mcL (0.0-1.3); Monocytes % 2.9 %; Neutrophils # 26.8 K/mcL (1.6-8.9); Platelet Count 131 K/mcL (140-400); Red Blood Count 5.14 M/mcL (4.19-5.50); Red Cell Distribution Width 16.5 % (11.5-14.5); Segmented Neutrophils % 94.3 %; White Blood Count 28.4 K/mcL (4.3-11.1)
[2021-06-22 12:49] LABS: Platelet Estimate Slight Decrease (Normal)
[2021-06-22 12:55] LABS: Calcium 8.8 mg/dL (8.6-10.3); Potassium 4.8 mEq/L (3.5-5.1)
[2021-06-22] MEDS ORDERED: D5% in Water 1,000 ML IVC SCH (13:00)
[2021-06-22] MEDS: Patient Taking Own Medication 1 EACH IT SCH (15:17)
[2021-06-22] MEDS: Heparin 25,000UNIT/250ML 1/2NS 25,000 UNIT/250 ML IV.SOLN IVC SCH ×2 (19:22→21:29)
[2021-06-22] MEDS: Haloperidol Lactate 5 MG/ML VIAL IVP PRN (19:41)
[2021-06-22] MEDS: Gabapentin 300 MG CAPSULE PO SCH (21:09)
[2021-06-23] MEDS: Insulin LISPRO 300 UNITS/3 ML VIAL SUBQ SCH ×4 (00:31→17:41)
[2021-06-23 02:21] LABS: Basophils % 0.1 %; Lymphocytes % 2.3 %; Segmented Neutrophils % 93.8 %
[2021-06-23 02:23] LABS: Hematocrit 41.6 % (37.5-50.1); Hemoglobin 12.7 g/dL (12.9-16.9); Immature Granulocytes % 0.7 % (0-4); Lymphocytes # 0.7 K/mcL (0.6-4.6); Mean Corpuscular HGB Conc 30.5 g/dL (31.6-35.5); Mean Corpuscular Volume 88.5 fL (83.0-100.0); Mean Platelet Volume 12.9 fL (9.4-12.4); Monocytes # 0.9 K/mcL (0.0-1.3); Monocytes % 3.1 %; Neutrophils # 27.4 K/mcL (1.6-8.9); Platelet Count 119 K/mcL (140-400); Red Cell Distribution Width 16.7 % (11.5-14.5); White Blood Count 29.2 K/mcL (4.3-11.1)
[2021-06-23 02:30] LABS: Heparin anti-factor XA UFH 0.57 IU/mL (0.30-0.70)
[2021-06-23 02:39] LABS: Platelet Estimate Slight Decrease (Normal)
[2021-06-23 02:42] LABS: BUN/Creatinine Ratio 50 (6-26); Blood Urea Nitrogen 74 mg/dL (8-23); Calcium 8.4 mg/dL (8.6-10.3); Carbon Dioxide 24 mEq/L (23-29); Chloride 124 mEq/L (98-107); Glucose 187 mg/dL (70-105); Lactate Dehydrogenase 367 Units/L (140-271); Magnesium 2.9 mg/dL (1.6-2.6); Osmolality,Calculated 349 (280-300); Phosphorous 4.3 mg/dL (2.7-4.5); Potassium 4.3 mEq/L (3.5-5.1); Sodium 156 mEq/L (136-145); eGFR For African Americans 57 (> 60); eGFR For Non-African Americans 47 (> 60)
[2021-06-23 03:04] LABS: Ferritin > 1500 ng/mL (20-250)
[2021-06-23] MEDS: Ampicillin/Sulbactam 1,500 MG in 0.9 % Sodium Chloride Mini Bag 100 ML IVPB SCH ×3 (05:55→17:40)
[2021-06-23] MEDS: DilTIAZem CD (24hr) 120 MG CAP.ER.24H PO SCH (07:58)
[2021-06-23] MEDS: QUEtiapine Fumarate 25 MG TABLET PO SCH ×2 (07:58→23:16)
[2021-06-23] MEDS: Baclofen 10 MG TABLET PO SCH ×3 (07:58→23:15)
[2021-06-23] MEDS: Levothyroxine Sodium 100 MCG VIAL IVP SCH (07:59)
[2021-06-23] MEDS: Pantoprazole 40 MG VIAL IVP SCH (07:59)
[2021-06-23] MEDS ORDERED: D5% in Water 500 ML IVC SCH (11:45)
[2021-06-23] MEDS: Tiotropium 10 INH DOSE IH SCH (12:57)
[2021-06-23] MEDS: Insulin DETEMIR 100 UNIT/ML X5UNITS SUBQ SCH ×2 (13:55→22:13)
[2021-06-23] MEDS: Patient Taking Own Medication 1 EACH IT SCH (15:15)
[2021-06-23] MEDS: Gabapentin 300 MG CAPSULE PO SCH (23:16)
[2021-06-24] MEDS: Insulin LISPRO 300 UNITS/3 ML VIAL SUBQ SCH ×4 (00:42→18:19)
[2021-06-24] MEDS: Ampicillin/Sulbactam 1,500 MG in 0.9 % Sodium Chloride Mini Bag 100 ML IVPB SCH ×2 (00:43→05:38)
[2021-06-24] MEDS: Heparin 25,000UNIT/250ML 1/2NS 25,000 UNIT/250 ML IV.SOLN IVC SCH (02:49)
[2021-06-24 05:18] LABS: Platelet Count 102 K/mcL (140-400)
[2021-06-24 05:19] LABS: Basophils % 0.1 %; Hematocrit 39.8 % (37.5-50.1); Hemoglobin 12.2 g/dL (12.9-16.9); Immature Granulocytes % 0.7 % (0-4); Lymphocytes # 0.8 K/mcL (0.6-4.6); Lymphocytes % 2.4 %; Mean Corpuscular HGB Conc 30.7 g/dL (31.6-35.5); Mean Corpuscular Hemoglobin 27.2 pg (28.0-33.3); Mean Corpuscular Volume 88.8 fL (83.0-100.0); Mean Platelet Volume 12.4 fL (9.4-12.4); Monocytes # 0.8 K/mcL (0.0-1.3); Monocytes % 2.3 %; Neutrophils # 32.6 K/mcL (1.6-8.9); Red Blood Count 4.48 M/mcL (4.19-5.50); Red Cell Distribution Width 16.9 % (11.5-14.5); Segmented Neutrophils % 94.5 %
[2021-06-24 05:27] LABS: White Blood Count 34.5 K/mcL (4.3-11.1)
[2021-06-24 05:37] LABS: Calcium 8.3 mg/dL (8.6-10.3); Magnesium 3.1 mg/dL (1.6-2.6); Phosphorous 4.1 mg/dL (2.7-4.5); Potassium 4.5 mEq/L (3.5-5.1)
[2021-06-24 05:41] LABS: Platelet Estimate Decreased (Normal)
[2021-06-24] MEDS: D5% in Water 1,000 ML IVC SCH (07:53)
[2021-06-24] MEDS: Tiotropium 10 INH DOSE IH SCH (08:24)
[2021-06-24] MEDS: Baclofen 10 MG TABLET PO SCH ×3 (09:30→20:29)
[2021-06-24] MEDS: DilTIAZem CD (24hr) 120 MG CAP.ER.24H PO SCH (09:31)
[2021-06-24] MEDS: QUEtiapine Fumarate 25 MG TABLET PO SCH ×2 (09:31→20:29)
[2021-06-24] MEDS: Piperacillin/Tazobactam 3.375 GM in 0.9 % Sodium Chloride Mini Bag 100 ML IVPB SCH ×2 (09:31→15:21)
[2021-06-24] MEDS: Pantoprazole 40 MG VIAL IVP SCH (09:32)
[2021-06-24] MEDS: Insulin DETEMIR 100 UNIT/ML X5UNITS SUBQ SCH ×2 (10:04→20:29)
[2021-06-24] MEDS: Levothyroxine Sodium 100 MCG VIAL IVP SCH (10:05)
[2021-06-24] MEDS: Patient Taking Own Medication 1 EACH IT SCH (14:23)
[2021-06-24] MEDS: Gabapentin 300 MG CAPSULE PO SCH (20:29)
[2021-06-24] MEDS: Saliva Stimulant 44.3ml BOTTLE PO PRN (20:30)
[2021-06-25] MEDS: Piperacillin/Tazobactam 3.375 GM in 0.9 % Sodium Chloride Mini Bag 100 ML IVPB SCH ×3 (00:59→18:18)
[2021-06-25] MEDS: D5% in Water 1,000 ML IVC SCH ×2 (00:59→11:31)
[2021-06-25] MEDS: Insulin LISPRO 300 UNITS/3 ML VIAL SUBQ SCH ×4 (01:00→20:29)
[2021-06-25] MEDS ORDERED: Haloperidol Lactate 5 MG/ML VIAL IM ONE (06:07)
[2021-06-25] MEDS: Tiotropium 10 INH DOSE IH SCH (08:48)
[2021-06-25 09:20] LABS: Hemoglobin 11.6 g/dL (12.9-16.9)
[2021-06-25 09:21] LABS: Hematocrit 38.1 % (37.5-50.1); Immature Platelets 13.6 % (1.1-6.1); Mean Corpuscular HGB Conc 30.4 g/dL (31.6-35.5); Mean Corpuscular Hemoglobin 26.8 pg (28.0-33.3); Red Blood Count 4.33 M/mcL (4.19-5.50); Red Cell Distribution Width 17.1 % (11.5-14.5)
[2021-06-25 09:24] LABS: Platelet Count 79 K/mcL (140-400)
[2021-06-25 09:27] LABS: White Blood Count 31.5 K/mcL (4.3-11.1)
[2021-06-25 09:45] LABS: Albumin 2.6 g/dL (3.5-5.7); Albumin/Globulin Ratio 0.8 (1.1-2.2); Bilirubin,Total 0.9 mg/dL (0.3-1.0); Calcium 8.3 mg/dL (8.6-10.3); Globulin 3.4 g/dL (2.4-3.5); Magnesium 3.3 mg/dL (1.6-2.6); Phosphorous 4.5 mg/dL (2.7-4.5)
[2021-06-25] MEDS: Pantoprazole 40 MG VIAL IVP SCH (10:14)
[2021-06-25] MEDS: Levothyroxine Sodium 100 MCG VIAL IVP SCH (10:21)
[2021-06-25] MEDS: QUEtiapine Fumarate 25 MG TABLET PO SCH ×2 (10:22→21:47)
[2021-06-25] MEDS: DilTIAZem CD (24hr) 120 MG CAP.ER.24H PO SCH (10:22)
[2021-06-25] MEDS: Baclofen 10 MG TABLET PO SCH ×3 (10:22→21:47)
[2021-06-25] MEDS: Insulin DETEMIR 100 UNIT/ML X5UNITS SUBQ SCH ×2 (10:24→22:11)
[2021-06-25] MEDS ORDERED: Sodium Bicarbonate 150 MEQ in D5% in Water 1,000 ML IVC SCH (10:30)
[2021-06-25] MEDS: Haloperidol Lactate 5 MG/ML VIAL IVP PRN (11:07)
[2021-06-25 12:15] LABS: ABG Base Excess -3 mEq/L (-2 to 3); ABG HCO3 19 mEq/L (21-27); ABG Oxygen Saturation 93 % (95-98); ABG PCO2 26 mmHg (35-45); ABG PH 7.48 pH Units (7.32-7.45); ABG PO2 60 mmHg (85-104); ABG TCO2 20 mEq/L (20-26)
[2021-06-25] MEDS: Patient Taking Own Medication 1 EACH IT SCH (15:03)
[2021-06-25 18:55] LABS: Bilirubin,Urine Negative (Negative); Blood,Urine Large (Negative); Clarity,Urine Ex.Turbid (Clear); Color,Urine Yellow (Yellow); Glucose,Urine (UA) Normal (Normal); Ketones,Urine Negative (Negative); Leukocyte Esterase,Urine Large (Negative); Nitrite,Urine Negative (Negative); PH,Urine 7.5 pH Units (5.0-8.0); Protein,Urine 100 mg/dL (Neg-Trace); Urobilinogen,Urine Normal (Normal)
[2021-06-25] MEDS: Gabapentin 300 MG CAPSULE PO SCH (21:47)
[2021-06-25] MEDS: Apixaban 5 MG TABLET PO SCH (21:47)
[2021-06-26] MEDS: Insulin LISPRO 300 UNITS/3 ML VIAL SUBQ SCH ×4 (00:54→16:59)
[2021-06-26] MEDS: D5% in Water 1,000 ML IVC SCH ×2 (03:17→15:45)
[2021-06-26] MEDS: Piperacillin/Tazobactam 3.375 GM in 0.9 % Sodium Chloride Mini Bag 100 ML IVPB SCH ×3 (03:17→15:46)
[2021-06-26] MEDS: Haloperidol Lactate 5 MG/ML VIAL IVP PRN (03:18)
[2021-06-26 07:04] LABS: BUN/Creatinine Ratio 46 (6-26); Blood Urea Nitrogen 110 mg/dL (8-23); Calcium 8.7 mg/dL (8.6-10.3); Carbon Dioxide 19 mEq/L (23-29); Chloride 132 mEq/L (98-107); Ferritin > 1500 ng/mL (20-250); Glucose 222 mg/dL (70-105); Lactate Dehydrogenase 478 Units/L (140-271); Magnesium 3.7 mg/dL (1.6-2.6); Osmolality,Calculated 376 (280-300); Phosphorous 4.8 mg/dL (2.7-4.5); Potassium 4.7 mEq/L (3.5-5.1); Sodium 162 mEq/L (136-145); eGFR For African Americans 32 (> 60); eGFR For Non-African Americans 27 (> 60)
[2021-06-26] MEDS: Tiotropium 10 INH DOSE IH SCH (07:54)
[2021-06-26] MEDS: Pantoprazole 40 MG VIAL IVP SCH (09:58)
[2021-06-26] MEDS: Levothyroxine Sodium 100 MCG VIAL IVP SCH (09:59)
[2021-06-26] MEDS: DilTIAZem CD (24hr) 120 MG CAP.ER.24H PO SCH (10:00)
[2021-06-26] MEDS: Apixaban 5 MG TABLET PO SCH ×2 (10:00→20:00)
[2021-06-26] MEDS: Insulin DETEMIR 100 UNIT/ML X5UNITS SUBQ SCH ×2 (10:00→19:52)
[2021-06-26] MEDS: Baclofen 10 MG TABLET PO SCH ×3 (10:00→20:00)
[2021-06-26] MEDS: QUEtiapine Fumarate 25 MG TABLET PO SCH ×2 (10:01→20:00)
[2021-06-26] MEDS: Heparin 25,000UNIT/250ML 1/2NS 25,000 UNIT/250 ML IV.SOLN IVC SCH (12:59)
[2021-06-26] MEDS: Patient Taking Own Medication 1 EACH IT SCH (15:47)
[2021-06-26 16:15] LABS: Hemoglobin 11.9 g/dL (12.9-16.9); Immature Platelets 13.9 % (1.1-6.1); Mean Corpuscular HGB Conc 29.8 g/dL (31.6-35.5); Mean Corpuscular Hemoglobin 26.4 pg (28.0-33.3); Mean Corpuscular Volume 88.9 fL (83.0-100.0); Red Cell Distribution Width 17.3 % (11.5-14.5)
[2021-06-26 16:17] LABS: Platelet Count 62 K/mcL (140-400)
[2021-06-26 16:19] LABS: Fibrinogen 341 mg/dL (169-393)
[2021-06-26 16:47] LABS: D-Dimer 16199 ng/mLFEU (0-500)
[2021-06-26 17:03] LABS: Monocytes # 1.3 K/mcL (0.0-1.3); Neutrophils # 30.7 K/mcL (1.6-8.9); Platelet Estimate Decreased (Normal)
[2021-06-26] MEDS: Gabapentin 300 MG CAPSULE PO SCH (20:00)
[2021-06-27] MEDS: Piperacillin/Tazobactam 3.375 GM in 0.9 % Sodium Chloride Mini Bag 100 ML IVPB SCH (00:15)
[2021-06-27] MEDS: Insulin LISPRO 300 UNITS/3 ML VIAL SUBQ SCH ×2 (00:17→06:15)
[2021-06-27] MEDS: Haloperidol Lactate 5 MG/ML VIAL IVP PRN (02:31)
[2021-06-27 02:53] LABS: Basophils % 0.1 %; Hematocrit 40.9 % (37.5-50.1); Hemoglobin 12.1 g/dL (12.9-16.9); Immature Platelets 14.9 % (1.1-6.1); Lymphocytes # 0.7 K/mcL (0.6-4.6); Lymphocytes % 2.2 %; Mean Corpuscular HGB Conc 29.6 g/dL (31.6-35.5); Mean Corpuscular Hemoglobin 26.7 pg (28.0-33.3); Mean Corpuscular Volume 90.3 fL (83.0-100.0); Monocytes # 0.4 K/mcL (0.0-1.3); Monocytes % 1.2 %; Red Blood Count 4.53 M/mcL (4.19-5.50); Red Cell Distribution Width 17.3 % (11.5-14.5); Segmented Neutrophils % 95.5 %
[2021-06-27 02:55] LABS: Neutrophils # 31.8 K/mcL (1.6-8.9); Platelet Count 55 K/mcL (140-400)
[2021-06-27 02:57] LABS: White Blood Count 33.3 K/mcL (4.3-11.1)
[2021-06-27 03:09] LABS: Magnesium 3.6 mg/dL (1.6-2.6); Phosphorous 4.5 mg/dL (2.7-4.5)
[2021-06-27 03:22] LABS: Platelet Estimate Decreased (Normal)
[2021-06-27] MEDS: D5% in Water 1,000 ML IVC SCH (04:59)
[2021-06-27] MEDS: Tiotropium 10 INH DOSE IH SCH (07:50)
[2021-06-27] MEDS ORDERED: Loratadine 10 MG TABLET PO SCH (09:00)
[2021-06-27] MEDS: Morphine Sulfate 2 MG/ML SYRINGE IVP PRN ×6 (11:19→21:36)
[2021-06-27] MEDS: *HR* LORazepam 2 MG/ML VIAL IVP PRN ×3 (11:20→17:22)
[2021-06-27 12:30] LABS: Calcium 7.9 mg/dL (8.6-10.3)
[2021-06-28] MEDS: Morphine Sulfate 2 MG/ML SYRINGE IVP PRN ×4 (00:21→08:04)
[2021-06-28] MEDS: Tiotropium 10 INH DOSE IH SCH (08:20)
[2021-06-28 08:27] VITALS: BP 86/59; PULSE 75; TEMP 96.1; O2SAT 76
== END 2021-06-28 11:57 | disposition expired | DRG 177 ==
LOC: EMEROOARM 10:09 → ICNU 10:09 → SUATTDRO 13:23 → ICNU 13:33 → SUATTDRO 16:15 → 2NENU 06-13 01:38
PROVIDERS: ADMIT Student in an Organized Health Care Education/Training Program; ATTEND Pharmacist